=== PATIENT | male | born 1995 | race Caucasian/White ===

== ENCOUNTER 2018-09-14 14:36 | Emergency (ER) | payer OTHER, SELFPAY ==
[2018-09-14 14:52] VITALS: BP 149/79; PULSE 71; RESP 16; TEMP 36.9; O2SAT 99
--- NOTE | 2018-09-14 15:16 | ED.GENADUL_ITS ---
Discharge Plan Disposition Patient Disposition: HOME Condition: Improving Discharge Details Chief Complaint: Orthopedic Clinical Impression: Contusion of hand, right Primary Care Provider: NONE,NONE ED Provider: Jarek Johnston Home Meds and New Rx's Prescriptions: No Action No Known Home Meds RF: 0 Discharge Instructions Instructions: Contusion in Adults (ED) Additional Instructions: Please follow-up in orthopedics for recheck. Call the office for an appointment. Leave the splint on and elevate above the level of heart to reduce pain and swelling. Return if you develop cold, blue, numb, tingling of the fingertips. Tylenol and/or ibuprofen as needed for pain Medical Decision Making 23-year-old right-handed male who is right hand was pinched between 2 metal bars using a tire machine at work. He has dorsal pain and swelling as well as tenderness to the base of the thumb. His exam is notable for intact motor and sensory testing. He is given ice, acetaminophen in addition to the ibuprofen he took at work. He is referred for x-ray. I reviewed with Dr. Mejia. There is no evidence of underlying fracture. Patient is at risk for occult scaphoid fracture. Therefore I placed him in a modified thumb spica and will have him follow-up in orthopedic surgery for recheck. HPI General Mode of arrival: ambulatory . Date/Time Provider Initiated Documentation: 09/14/18 15:06 . Limitations to Documentation: no limitations . Information obtained by: patient . History of Present Illness 23 year old M presents to the emergency department with the chief complaint of R hand Pain , described as moderate, Quality is described as aching, and is localized to the right and upper extremity. Patient extremity. Patient started experiencing this minute(s) and it has been constant. No relieving factors improve symptom(s), No exacerbating factors reported . 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 His right hand was pinched between 2 metal bars. He had immediate onset of dorsal pain and swelling as well as pain at the base of his thumb. It is dull, achy, constant, worse with movement and improved with ice. No numbness, tingling, weakness. No other injury and he states that he has otherwise recently been well. Related Data Home Medications Medication Instructions Recorded Confirmed Unknown [No Known Home Meds] 09/14/18 09/14/18 Allergies Allergy/AdvReac Type Severity Reaction Status Date / Time No Known Allergies Allergy Unverified 09/14/18 14:56 General Stated Complaint: Orthopedic TIFFANI: 4 Review of Systems Review of Systems 6 systems reviewed and otherwise negative [facility] Social History Smoking/Tobacco Use Status: Never Exam Narrative Exam Narrative: GEN: awake, alert, oriented 3. Pleasant, well groomed, interactive. HEAD: Normocephalic, atraumatic ENT: Mucous membranes moist, oropharynx unremarkable, External ear exam unremarkable EYES: PERRL, EOMI NECK: Full ROM, no VINH, no menigismus EXT: Full ROM. Radial pulses in bilateral upper extremity. There is no pain on palpation of the right clavicle, humerus, elbow. Patient has dorsal swelling overlying his second metacarpal of the right hand. He has tenderness at the base of the right thumb. He is able to touch thumb to fifth digit, cross long finger over index, make the okay sign. His distal two-point discrimination is intact at 1 cm in all 5 digits. Cap refill is less than 2 seconds. He has minimal pain with resisted supination. Neuro: Grossly normal neurologic exam, conversant, interactive. Psych: Speech fluent, thoughts congruent, affect normal Course Vital Signs Temperature 36.9 C 09/14/18 14:52 Pulse 71 09/14/18 14:52 Respiratory Rate 16 09/14/18 14:52 Blood Pressure 149/79 H 09/14/18 14:52 Pulse Oximetry 99 09/14/18 14:52 Temperature 36.9 C 09/14/18 14:52 Temperature Source Skin 09/14/18 14:52 Pulse 71 09/14/18 14:52 Respiratory Rate 16 09/14/18 14:52 Respiratory Effort Non-Labored 09/14/18 14:55 Blood Pressure 149/79 H 09/14/18 14:52 Pulse Oximetry 99 09/14/18 14:52 Pain Level 7 09/14/18 14:57
[2018-09-14] MEDS: Acetaminophen 500 MG TAB 1000 MG PO (15:27)
--- NOTE | 2018-09-14 15:46 | W.PM.HP.N ---
[facility] Social History Smoking/Tobacco Use Status: Never Meds Home Medications Medication Instructions Recorded Confirmed Type Unknown [No Known Home Meds] 09/14/18 09/14/18 History Allergies Allergy/AdvReac Type Severity Reaction Status Date / Time No Known Allergies Allergy Unverified 09/14/18 14:56 Results Last Vital Signs Temp 36.9 C 09/14/18 14:52 Pulse 71 09/14/18 14:52 Resp 16 09/14/18 14:52 BP 149/79 H 09/14/18 14:52 Pulse Ox 99 09/14/18 14:52
--- NOTE | 2018-09-14 15:52 | DI.RAD_ITS ---
SYMPTOM/DIAGNOSIS: PINCHED BY TIRE MACHINE. PAIN MOSTLY AT BASE THUMB RIGHT HAND: Three views. No acute fracture or dislocation seen. No radiopaque foreign bodies are seen in the soft tissues. IMPRESSION: Negative examination.
== END 2018-09-14 16:21 | disposition home or self-care (01) ==
PROVIDERS: Emergency Provider Emergency Medicine
DX: S67.21XA Crushing injury of right hand, initial encounter (principal); S60.221A Contusion of right hand, initial encounter; W23.0XXA Caught, crushed, jammed, or pinched between moving objects, initial encounter
CPT/HCPCS: 29125; 99283; 73130